=== PATIENT | male | born 1975 | race Caucasian/White ===

== ENCOUNTER 2018-05-26 11:41 | Emergency (ER) | payer SELFPAY ==
[2018-05-26 12:05] VITALS: BP 123/78; PULSE 87; RESP 20; TEMP 98.4; O2SAT 100
--- NOTE | 2018-05-26 12:26 | C.PDOC ---
History Of Present Illness 43 year old male presents to the ED for evaluation of epistaxis to bilateral nares that has been intermittent for one month. Patient denies fever, chills, nose picking. Time Seen by Provider: 05/26/18 12:19 Chief Complaint (Nursing): ENT Problem History Per: Patient History/Exam Limitations: None Onset/Duration Of Symptoms: Intermittent Episodes (one month) Current Symptoms Are (Timing): Still Present Past Medical History Reviewed: Historical Data, Nursing Documentation, Vital Signs Vital Signs: Last Vital Signs Temp 98.4 F 05/26/18 12:02 Pulse 87 05/26/18 12:02 Resp 20 05/26/18 12:02 BP 123/78 05/26/18 12:02 Pulse Ox 100 05/26/18 12:02 - Medical History PMH: No Chronic Diseases Surgical History: No Surg Hx - [facility] Procedures DIPHTHERIA TOXOID ADMIN (11/17/12) TETANUS TOXOID ADMINIST (11/17/12) Family History: States: Unknown Family Hx - Social History Hx Alcohol Use: Yes Hx Substance Use: No - Immunization History Hx Tetanus Toxoid Vaccination: Yes Hx Influenza Vaccination: No Hx Pneumococcal Vaccination: No Review Of Systems Constitutional: Negative for: Fever, Chills ENT: Positive for: Other (occasional epistaxis ) Physical Exam - Physical Exam Appears: Non-toxic, No Acute Distress Skin: Normal Color, Warm, Dry Head: Atraumatic, Normacephalic Eye(s): bilateral: Normal Inspection Ear(s): Bilateral: Normal Nose: No Epistaxis, Other (dry, crusted blood noted in left nare. 5x5cm flesh- like mass to left medial nare. no active bleeding ) Oral Mucosa: Moist Throat: Normal, No Erythema, No Exudate Neck: Supple Chest: Symmetrical, No Deformity, No Tenderness Cardiovascular: Rhythm Regular, No Murmur Respiratory: Normal Breath Sounds, No Rales, No Rhonchi, No Wheezing Extremity: Normal ROM, Capillary Refill (less than 2 seconds) Neurological/Psych: Oriented x3, Normal Speech, Normal Cognition ED Course And Treatment O2 Sat by Pulse Oximetry: 100 (on RA) Pulse Ox Interpretation: Normal Medical Decision Making Medical Decision Making: intermittent b/l epistaxis mild over past month, ? related to viral syndrome or Winter weather ? small 5x5 mm lesion medial L nares c/w hematoma or local irritation, with crusted blood around it suggests recent bleeding opt f/u w Dr. Salinas for further w/u. Disposition Doctor Will See Patient In The: Office Counseled Patient/Family Regarding: Studies Performed, Diagnosis - Disposition Referrals: [facility] [Outside] [facility] [Outside] [facility] [Outside] Artemio Salinas MD [Staff Provider] - Disposition: HOME/ ROUTINE Disposition Time: 12:25 Condition: GOOD Additional Instructions: lubricantes de vaselina cada lado del nariz 2 veces al gia Sigue con Dr. Salinas- Otolaryngologo para re-evaluaci'on. Llama para hacer nedra en < 1-2 semanas. Instructions: Nosebleeds (DC) Forms: [employer] (Mongolian) Print Language: TAJIK - Clinical Impression Clinical Impression: Epistaxis, recurrent - Scribe Statement The provider has reviewed the documentation as recorded by the Scribe (Lisa Jacobo) Provider Attestation: All medical record entries made by the Scribe were at my direction and personally dictated by me. I have reviewed the chart and agree that the record accurately reflects my personal performance of the history, physical exam, medical decision making, and the department course for this patient. I have also personally directed, reviewed, and agree with the discharge instructions and disposition.
== END 2018-05-26 12:31 | disposition home or self-care (01) ==
LOC: C.ER 11:41
DX: R04.0 Epistaxis (principal)